=== PATIENT | male | born 1985 | race Caucasian/White ===

== ENCOUNTER 2017-01-01 16:14 | Emergency (ER) | payer OTHER ==
[2017-01-01 16:19] VITALS: BP 139/74; PULSE 101; TEMP 98.8; BMI 34.3
--- NOTE | 2017-01-01 16:53 | PDOC ---
History of Present Illness - General Chief Complaint: Pain Stated Complaint: ABD PAIN Time Seen by Provider: 01/01/17 16:44 - History of Present Illness Initial Comments: 01/01/17 16:45 Mr. Obrien is a 31 year old male with no significant past medical history who presents to the emergency department with a 3 day history of abdominal pain. He says that the pain has been more or less constant since it began and rates it as a 5/10. He denies any fever but says that he has had some chills. Furthermore, he endorses some decrease in urination currently. The patient denies chest pain, shortness of breath, headache and dizziness. Denies fever, nausea, vomit, diarrhea and constipation. Denies dysuria, frequency, urgency and hematuria. Allergies: NKDA Past surgical history: None Social history: Social EtOH PMD - None Past History - Past Medical History Allergies/Adverse Reactions: Allergies Allergy/AdvReac Type Severity Reaction Status Date / Time No Known Allergies Allergy Verified 01/01/17 16:16 Home Medications: Ambulatory Orders Ciprofloxacin HCl [Cipro] 500 mg PO BID #20 tablet 01/01/17 Metronidazole [Flagyl -] 500 mg PO TID #30 tablet 01/01/17 - Immunization History Immunization Up to Date: Yes - Psycho/Social/Smoking Cessation Hx Anxiety: No Suicidal Ideation: No Smoking History: Never smoked Have you smoked in the past 12 months: No Information on smoking cessation initiated: No Hx Alcohol Use: No Drug/Substance Use Hx: No Substance Use Type: None Review of Systems - Review of Systems Comments:: 01/01/17 16:45 GENERAL/CONSTITUTIONAL: +Chills. No fever. No weakness. HEAD, EYES, EARS, NOSE AND THROAT: No change in vision. No ear pain or discharge. No sore throat. CARDIOVASCULAR: No chest pain or shortness of breath RESPIRATORY: No cough, wheezing, or hemoptysis. GASTROINTESTINAL: +Lower abdominal pain reported. No nausea, vomiting, diarrhea or constipation. GENITOURINARY: +Recent decrease in urine amount noted. No dysuria or frequency MUSCULOSKELETAL: No joint or muscle swelling or pain. No neck or back pain. SKIN: No rash NEUROLOGIC: No headache, vertigo, loss of consciousness, or change in strength/ sensation. ENDOCRINE: No increased thirst. No abnormal weight change HEMATOLOGIC/LYMPHATIC: No anemia, easy bleeding, or history of blood clots. ALLERGIC/IMMUNOLOGIC: No hives or skin allergy. *Physical Exam - Vital Signs Last Vital Signs Temp Pulse Resp BP Pulse Ox 98.8 F 101 H 18 139/74 97 01/01/17 16:16 01/01/17 16:16 01/01/17 16:16 01/01/17 16:16 01/01/17 16:16 - Physical Exam Comments: 01/01/17 16:45 GENERAL: Awake, alert, and fully oriented, in no acute distress HEAD: No signs of trauma, normocephalic, atraumatic EYES: PERRLA, EOMI, sclera anicteric, conjunctiva clear ENT: Auricles normal inspection, hearing grossly normal, nares patent, oropharynx clear without exudates. Moist mucosa NECK: Normal ROM, supple, no lymphadenopathy, JVD, or masses LUNGS: No distress, speaks full sentences, clear to auscultation bilaterally HEART: Regular rate and rhythm, normal S1 and S2, no murmurs, rubs or gallops, peripheral pulses normal and equal bilaterally. ABDOMEN: +Tender to LLQ. Soft, normoactive bowel sounds. No guarding, no rebound. No masses EXTREMITIES: Normal inspection, Normal range of motion, no edema. No clubbing or cyanosis. NEUROLOGICAL: Cranial nerves II through XII grossly intact. Normal speech, normal gait, no focal sensorimotor deficits SKIN: Warm, Dry, normal turgor, no rashes or lesions noted. ED Treatment Course - LABORATORY CBC & Chemistry Diagram: 01/01/17 17:25 01/01/17 17:25 Medical Decision Making - Medical Decision Making 01/01/17 22:08 Patient c/o LLQ pain. CT ordered and positive for sigmoid colitis and possible acute diverticulitis. Will d/c to home with instructions for follow-up as well as ABX Rx's for ciprofloxacin and flagyl. *DC/Admit/Observation/Transfer Diagnosis at time of Disposition: Diverticulitis Qualifiers: Diverticulitis site: unspecified part of intestinal tract Diverticulitis bleeding: without bleeding Diverticulitis complication: unspecified complication status Qualified Code(s): K57.92 - Diverticulitis of intestine, part unspecified, without perforation or abscess without bleeding - Discharge Dispostion Disposition: HOME - Patient Instructions Printed Discharge Instructions: DI for Diverticulitis
[2017-01-01 17:42] LABS: BASOPHIL 0.5 % (0-2.0); EOSINOPHIL 0.6 % (0-4.5); MCH 29.3 pg (25.7-33.7); MCHC 33.6 g/dl (32.0-35.9); MEAN CELL VOLUME 87.2 fl (80-96); MEAN PLT VOLUME 10.3 fl (7.5-11.1); NEUTROPHILS 78.3 % (42.8-82.8); PLATELET COUNT 215 K/MM3 (134-434); RDW 13.6 % (11.9-15.9); WHITE BLOOD COUNT 15.3 K/mm3 (4.0-10.0)
[2017-01-01 18:29] LABS: URINE APPEARANCE CLEAR; URINE BILIRUBIN NEGATIVE (NEGATIVE); URINE BLOOD 1+ (NEGATIVE); URINE COLOR YELLOW; URINE GLUCOSE (UA) NEGATIVE (NEGATIVE); URINE KETONE NEGATIVE (NEGATIVE); URINE LEUK ESTERASE NEGATIVE (NEGATIVE); URINE NITRITE NEGATIVE (NEGATIVE); URINE PROTEIN NEGATIVE (NEGATIVE)
[2017-01-01 18:33] LABS: URINE MUCUS RARE; URINE RBC 1 /hpf (0-3)
[2017-01-01 18:41] LABS: ALBUMIN 4.4 g/dl (3.4-5.0); ANION GAP 10 (8-16); BILIRUBIN,TOTAL 0.7 mg/dL (0.2-1.0); CALCIUM 9.5 mg/dL (8.5-10.1); CO2 27 mmol/L (21-32); CREATININE 0.8 mg/dL (0.7-1.3); GLUCOSE,RANDOM 100 mg/dL (74-106); SGPT/ALT 68 U/L (12-78); TOT PROT 8.9 g/dl (6.4-8.2)
[2017-01-01 18:42] LABS: ALK PHOS 110 U/L (45-117)
[2017-01-01 18:44] LABS: SGOT/AST 20 U/L (15-37)
[2017-01-01] MEDS ORDERED: metroNIDAZOLE 250 MG TABLET PO ONE (22:06)
[2017-01-01] MEDS ORDERED: CIPROFLOXACIN 500 MG TABLET (RESTRICTED TO ID) PO ONE (22:06)
[2017-01-01] MEDS ORDERED: metroNIDAZOLE 250 MG TABLET ONE (22:57)
== END 2017-01-01 23:10 | disposition home or self-care (01) ==
LOC: JER 16:14
DX: K57.92 Diverticulitis of intestine, part unspecified, without perforation or abscess without bleeding (principal)
CPT/HCPCS: 36415; 74177-TC; 80053; 81003; 81015; 83690; 85025; 99282-25

== ENCOUNTER 2019-12-18 20:26 | Inpatient (IN) | payer BC, OTHER ==
--- NOTE | 2019-12-18 20:30 | PDOC ---
Rapid Medical Evaluation Time Seen by Provider: 12/18/19 20:29 Medical Evaluation: Allergies Allergy/AdvReac Type Severity Reaction Status Date / Time No Known Allergies Allergy Verified 01/01/17 16:16 12/18/19 20:30 I have performed a brief in-person evaluation of this patient. CC: right testicle pain since 12/16 PE: deferred Orders: scrotum sono Patient to proceed to ED for further evaluation. Discharge Disposition - Diagnosis Testicle pain - Referrals - Patient Instructions - Post Discharge Activity
[2019-12-18 20:35] VITALS: BMI 34.8
--- NOTE | 2019-12-18 20:55 | PDOC ---
History of Present Illness - General Chief Complaint: Pain Stated Complaint: ABD PAIN Time Seen by Provider: 12/18/19 20:29 History Source: Patient - History of Present Illness Initial Comments: 12/18/19 21:36 34-year-old male complaining of right lower abdominal pain for the last 2days. Patient reports that since yesterday he has been having right testicular discomfort today noted to have swelling, hardening of the right testicle with increased pain and redness.Patient reports that when the pain started on 2 days ago he took leftover dose of Cipro and Flagyl thinking that it was related to his colitis. PMHX: Elevated transaminase. Past History - Medical History Allergies/Adverse Reactions: Allergies Allergy/AdvReac Type Severity Reaction Status Date / Time No Known Allergies Allergy Verified 01/01/17 16:16 Home Medications: Ambulatory Orders Ciprofloxacin HCl [Cipro] 500 mg PO BID #20 tablet 01/01/17 metroNIDAZOLE [Flagyl -] 500 mg PO TID #30 tablet 01/01/17 COPD: No - Immunization History Immunization Up to Date: Yes - Psycho-Social/Smoking History Smoking History: Never smoked Have you smoked in the past 12 months: No - Substance Abuse Hx (Audit-C & DAST Scrn) How often the patient has a drink containing alcohol: Monthly or less Score: In Men: 4 or > Positive; In Women: 3 or > Positive: 1 Screen Result (Pos requires Nsg. Audit-10AR): Negative Review of Systems - Review of Systems Able to Perform ROS?: Yes Is the patient limited Citizen [place] proficient: No Constitutional: No: Symptoms Reported, See HPI, Chills, Diaphoresis, Fever, Loss of Appetite, Malaise, Night Sweats, Weakness, Weight Stable, Unintentional Wgt. Loss, Unexplained wgt Loss, Other : Yes: Testicular Pain. No: Symptoms Reported, See HPI, Burning, Dysuria, Discharge, Frequency, Flank Pain, Hematuria, Incontinence, Pain, Urgency, Testicular Mass, Testicular Swelling, Lesions, Other *Physical Exam - Vital Signs Last Vital Signs Temp Pulse Resp BP Pulse Ox 98.1 F 97 H 20 163/106 H 97 12/18/19 20:32 12/18/19 20:32 12/18/19 20:32 12/18/19 20:32 12/18/19 20:32 - Physical Exam General Appearance: Yes: Appropriately Dressed Gastrointestinal/Abdominal: positive: Normal Bowel Sounds, Tender (Right ) Male Genitalia: positive: testicular tenderness (right testicle swollen, hard, erythematous, right > left) Extremity: positive: Normal Capillary Refill, Normal Inspection, Normal Range of Motion ED Treatment Course - LABORATORY CBC & Chemistry Diagram: 12/18/19 21:38 12/18/19 21:38 ED Progress Note - Progress Note Progress Note: 12/18/19 21:44 A: right testiculr torsion P: pre op labs paged Medical Decision Making - Medical Decision Making 12/18/19 22:05 Dr. denise(urology) recommendation. Admission tonight. OR in the a.m. since symptoms greater than 6 hours. Patient to be admitted to the hospital for orchiotomy Discharge - Discharge Information Problems reviewed: Yes Clinical Impression/Diagnosis: Right testicular torsion Testicle pain Qualifiers: Laterality: right Qualified Code(s): N50.811 - Right testicular pain Condition: Guarded - Admission Yes - Follow up/Referral - Patient Discharge Instructions - Post Discharge Activity
[2019-12-18] MEDS ORDERED: SODIUM CHLORIDE 1,000 ML IV STA (21:28)
[2019-12-18] MEDS ORDERED: morphine CARPU-JECT 4 MG/1 ML DISP.SYRIN IVPUSH ONE (21:28)
[2019-12-18] MEDS ORDERED: morphine SULFATE 4 MG/ML VIAL ONE (21:33)
--- NOTE | 2019-12-18 21:49 | PDOC ---
*Physical Exam - Vital Signs Last Vital Signs Temp Pulse Resp BP Pulse Ox 98.1 F 97 H 20 163/106 H 97 12/18/19 20:32 12/18/19 20:32 12/18/19 20:32 12/18/19 20:32 12/18/19 20:32 - Physical Exam 12/18/19 21:45 Gen: awake, uncomfortable gu: R testicle is hard, red, high riding, no cremasteric reflex ED Treatment Course - LABORATORY CBC & Chemistry Diagram: 12/18/19 21:38 12/18/19 21:38 Medical Decision Making - Medical Decision Making 12/18/19 21:48 a/p: 34yo male with R testicle pain and redness -ultrasound shows torsion -will send labs -STAT call to urology - Dr. Hall -will start an iv, give pain meds -will monitor and reassess -NPO 12/18/19 21:59 pt with pain since yesterday more than 6 hrs of pain case discussed with Dr. Hall, urology, who [facility], OR at 7am microblog sent to [facility] for admission Discharge - Discharge Information Problems reviewed: Yes Clinical Impression/Diagnosis: Right testicular torsion Testicle pain Qualifiers: Laterality: right Qualified Code(s): N50.811 - Right testicular pain Condition: Guarded - Admission Yes - Follow up/Referral - Patient Discharge Instructions - Post Discharge Activity
[2019-12-18 21:55] LABS: BASO % 0.4 % (0-2.0); EOS % 0.8 % (0-4.5); HEMATOCRIT 42.2 % (35.4-49); HEMOGLOBIN 14.5 GM/dL (11.7-16.9); LYMPH % 17.3 % (8-40); MCH 29.7 pg (25.7-33.7); MCHC 34.4 g/dl (32.0-35.9); MEAN CELL VOLUME 86.4 fl (80-96); MEAN PLT VOLUME 9.8 fl (7.5-11.1); MONO % 5.3 % (3.8-10.2); NEUT % 76.2 % (42.8-82.8); PLATELET COUNT 192 K/MM3 (134-434); RBC 4.89 M/mm3 (4.00-5.60); RDW 13.4 % (11.9-15.9); WHITE BLOOD COUNT 12.4 K/mm3 (4.0-10.0)
[2019-12-18 22:04] LABS: INR 0.99 (0.83-1.09); PROTHROMBIN TIME (PATIENT) 11.7 SEC (9.7-13.0)
[2019-12-18 22:07] LABS: ACTIVATED PTT 30.2 SECONDS (25.2-36.5)
[2019-12-18 22:30] LABS: ALBUMIN 3.8 g/dl (3.4-5.0); BILIRUBIN,TOTAL 0.4 mg/dL (0.2-1); BLOOD UREA NITROGEN 12.5 mg/dL (7-18); CREATININE 0.9 mg/dL (0.55-1.3); POTASSIUM 4.6 mmol/L (3.5-5.1); TOT PROT 7.8 g/dl (6.4-8.2)
[2019-12-18] MEDS ORDERED: DEXTROSE 5%-0.45% SALINE 1,000 ML IV SCH (22:30)
--- NOTE | 2019-12-18 22:37 | HP ---
CHIEF COMPLAINT: Right Testicular Pain PCP: None HISTORY OF PRESENT ILLNESS: This is a 34 y/o male with a PMHx of Colitis, Transaminitis, Prediabetes. Who presents to the ED with right testicular pain and swelling x today. Patient reports having right lower abdominal pain with radiation to right groin last Mo . Patient reports taking leftover Cipro/Flagyl on Tuesday for the abdominal pain which he assumed was a colitis flare. He reports the pain became worse when attempting to have a BM. He reports having swelling, redness, and hardness to his right testicle today. Patient reports that the pain increased, worse with movement prompting him to come in for evaluation. Patient reports being in a monogamous relationship, last sexual intercourse was last Tuesday without barrier protection. Patient denies penile discharge or dysuria. Patient denies fever, chills, cough, SOB, dizziness, WILSON, CP, palpations, N/V/D. Patient denies sick contact or recent travel. ER course was notable for: (1) Testicular US- right testicular torsion (2) WBC 12.4 (3) UA- +1 leukocytosis, 3 WBC, 10 bacteria Recent Travel: None PAST MEDICAL HISTORY: Colitis Transaminitis PreDiabetes Cryptorchidism PAST SURGICAL HISTORY: Orchiopexy age 4 Social History: Smoking: Never Alcohol: Denies Drugs: Denies Lives with family, employed- [employer] Allergies No Known Allergies Allergy (Verified 01/01/17 16:16) HOME MEDICATIONS: Home Medications Medication Instructions Recorded Ciprofloxacin HCl [Cipro] 500 mg PO BID #20 tablet 01/01/17 metroNIDAZOLE [Flagyl -] 500 mg PO TID #30 tablet 01/01/17 REVIEW OF SYSTEMS CONSTITUTIONAL: Absent: fever, chills, diaphoresis, generalized weakness, malaise, loss of appetite, weight change HEENT: Absent: rhinorrhea, nasal congestion, throat pain, throat swelling, difficulty swallowing, mouth swelling, ear pain, eye pain, visual changes CARDIOVASCULAR: Absent: chest pain, syncope, palpitations, irregular heart rate, lightheadedness, peripheral edema RESPIRATORY: Absent: cough, shortness of breath, dyspnea with exertion, orthopnea, wheezing, stridor, hemoptysis GASTROINTESTINAL: abdominal pain Absent: abdominal pain, abdominal distension, nausea, vomiting, diarrhea, constipation, melena, hematochezia GENITOURINARY: right testicular pain Absent: dysuria, frequency, urgency, hesitancy, hematuria, flank pain MUSCULOSKELETAL: Absent: myalgia, arthralgia, joint swelling, back pain, neck pain SKIN: Absent: rash, itching, pallor HEMATOLOGIC/IMMUNOLOGIC: Absent: easy bleeding, easy bruising, lymphadenopathy, frequent infections ENDOCRINE: Absent: unexplained weight gain, unexplained weight loss, heat intolerance, cold intolerance NEUROLOGIC: Absent: headache, focal weakness or paresthesias, dizziness, unsteady gait, seizure, mental status changes, bladder or bowel incontinence PSYCHIATRIC: Absent: anxiety, depression, suicidal or homicidal ideation, hallucinations. PHYSICAL EXAMINATION Vital Signs - 24 hr 12/18/19 20:32 Temperature 98.1 F Pulse Rate 97 H Respiratory 20 Rate Blood Pressure 163/106 H O2 Sat by Pulse 97 Oximetry (%) GENERAL: Awake, alert, and fully oriented, in no acute distress (post medication) HEAD: Normal with no signs of trauma. EYES: Pupils equal, round and reactive to light, extraocular movements intact, sclera anicteric, conjunctiva clear. No lid lag. EARS, NOSE, THROAT: Ears normal, nares patent, oropharynx clear without exudates. Moist mucous membranes. NECK: Normal range of motion, supple without lymphadenopathy, JVD, or masses. LUNGS: Breath sounds equal, clear to auscultation bilaterally. No wheezes, and no crackles. No accessory muscle use. HEART: Regular rate and rhythm, normal S1 and S2 without murmur, rub or gallop. ABDOMEN: Soft, nontender, not distended, normoactive bowel sounds, no guarding, no rebound, no masses. No hepatomegaly or splenomegaly. GENITOURINARY: +swelling, erythema, hardness, TTP to right testicle, left testicle non tender, no swelling, no redness MUSCULOSKELETAL: Normal range of motion at all joints. No bony deformities or tenderness. No CVA tenderness. UPPER EXTREMITIES: 2+ pulses, warm, well-perfused. No cyanosis. No clubbing. No peripheral edema. LOWER EXTREMITIES: 2+ pulses, warm, well-perfused. No calf tenderness. No peripheral edema. NEUROLOGICAL: Cranial nerves II-XII intact. Normal speech. Gait not observed. PSYCHIATRIC: Cooperative. Good eye contact. Appropriate mood and affect. SKIN: Warm, dry, normal turgor, no rashes or lesions noted, normal capillary refill. Tattoos Laboratory Results - last 24 hr 12/18/19 12/18/19 12/18/19 21:38 21:38 21:38 WBC 12.4 H RBC 4.89 Hgb 14.5 Hct 42.2 MCV 86.4 MCH 29.7 MCHC 34.4 RDW 13.4 Plt Count 192 MPV 9.8 Absolute Neuts (auto) 9.4 H Neutrophils % 76.2 Lymphocytes % 17.3 D Monocytes % 5.3 Eosinophils % 0.8 Basophils % 0.4 Nucleated RBC % 0 PT with INR 11.70 INR 0.99 PTT (Actin FS) 30.2 Sodium 139 Potassium 4.6 Chloride 105 Carbon Dioxide 27 Anion Gap 6 L BUN 12.5 Creatinine 0.9 Est GFR (CKD-EPI)AfAm 128.70 Est GFR (CKD-EPI)NonAf 111.04 Random Glucose 113 H Calcium 9.0 Total Bilirubin 0.4 AST 131 H ALT 193 H Alkaline Phosphatase 103 Total Protein 7.8 Albumin 3.8 ASSESSMENT/PLAN: This is a 34 y/o male with a PMHx of Colitis, Transaminitis, Prediabetes. Admitted to [facility] for Testicular Torsion, UTI for further evaluation of their emergent condition. Plan: See Problem List FEN D50.45%NS@100ml/hr Replete lytes prn NPO DVT ppx Low Risk OOB SCDs Dispo: Requires Inpatient Family Medical History Family History: As Documented Family Hx Diabetes: Grandfather (maternal) Other Family History: Maternal Aunt- Diabetes Problem List - Problem (1) Right testicular torsion Assessment/Plan: pain > 6hrs Testicular US image, report reviewed- right testicular torsion Urologist consulted by ED MD- OR tomorrow for Orchiectomy WBC 12.4 UA- +1 leukocyte esterase, 3WBC T Max 100.0 NPO IVF Morphine Sulfate prn Ofirmev prn Monitor CBC, CMP Monitor vitals Code(s): N44.00 - TORSION OF TESTIS, UNSPECIFIED (2) UTI (urinary tract infection) Assessment/Plan: Urine Culture-pending Will treat empirically with Ceftriaxone Monitor CBC Monitor vitals Code(s): N39.0 - URINARY TRACT INFECTION, SITE NOT SPECIFIED (3) Leukocytosis Assessment/Plan: Likely due to Testicular Torsion vs UTI Blood Cultures-pending Treating empirically for UTI Monitor CBC Code(s): D72.829 - ELEVATED WHITE BLOOD CELL COUNT, UNSPECIFIED (4) Transaminitis Assessment/Plan: 3-4xNL AST/ALT only Continue to monitor f/u with PCP in outpatient Code(s): R74.0 - NONSPEC ELEV OF LEVELS OF TRANSAMNS & LACTIC ACID DEHYDRGNSE (5) Encounter for screening laboratory testing for COVID-19 virus Assessment/Plan: Low Risk COVID-PCR pending Isolation Precautions Code(s): Z11.59 - ENCOUNTER FOR SCREENING FOR OTHER VIRAL DISEASES Visit type - Emergency Visit Emergency Visit: Yes ED Registration Date: 12/18/19 Care time: The patient presented to the Emergency Department on the above date and was hospitalized for further evaluation of their emergent condition. - New Patient This patient is new to me today: Yes Date on this admission: 12/18/19 - Critical Care Critical Care patient: No
[2019-12-18] MEDS ORDERED: ONDANSETRON 4 MG/2 ML VIAL IVPUSH PRN (22:40)
[2019-12-18] MEDS ORDERED: ACETAMINOPHEN 1000 MG/100 ML VIAL (NON FORMULARY) IVPB PRN ×2 (23:55→23:56)
--- NOTE | 2019-12-18 23:55 | CONS ---
DATE OF CONSULTATION: DATE OF DICTATION: 12/18/2019 HISTORY OF PRESENT ILLNESS: The patient is a 34-year-old male who came to the emergency room on December 18, 2019, was seen about 9:30 p.m. complaining of pain in his lower abdomen and scrotum. Patient states that he has had right lower abdominal pain and right scrotal pain for the last 2 days. Patient reports that since yesterday, he has been having severe right testicular pain. Today he noticed that the scrotum is and the skin is indurated and inflamed. Patient claims that 48 hours earlier he took leftover Cipro and Flagyl thinking that it was related to his colitis. He does have history of elevated transaminases. He denies any medical problems. He denies ethanolism or tobacco use. He denies any trauma to the testicles. Patient denies any voiding symptoms. In the emergency room, temperature is 98.1, respirations 20, pulse is 97, blood pressure 163/106, pulse oximetry is 97. His CBC and basic metabolic profile are pending. The patient underwent a testicular ultrasound as well as a color flow Doppler, this revealed no arterial or venous drainage to the right testicle. IMPRESSION: At present is testicular torsion greater than 24 hours. Will recommend right scrotal exploration and orchiectomy at 7 a.m. Will wait for blood workup. Will explain to patient the procedure and the consequences of the delay in diagnosis due to his not seeking earlier emergency room care and treatment. Will follow. Memo [id number]
[2019-12-18] MEDS ORDERED: ACETAMINOPHEN 1000 MG/100 ML VIAL (NON FORMULARY) IVPB ONE (23:56)
[2019-12-19] MEDS ORDERED: ACETAMINOPHEN INJECTION 100 ML IVPB ONE
[2019-12-19 00:36] LABS: EPI CELLS 3 /uL (0-25.1); HYALINE CASTS 1 /uL (0-3.1); URINE APPEARANCE CLEAR; URINE BACTERIA 10 /uL (0-1359); URINE BILIRUBIN NEGATIVE (NEGATIVE); URINE COLOR YELLOW; URINE GLUCOSE (UA) NEGATIVE (NEGATIVE); URINE KETONE NEGATIVE (NEGATIVE); URINE LEUK ESTERASE 1+ (NEGATIVE); URINE NITRITE NEGATIVE (NEGATIVE); URINE PROTEIN NEGATIVE (NEGATIVE); URINE RBC 6 /uL (0-23.9); URINE UROBILINOGEN 0.2 mg/dL (0.2-1.0); URINE WBC 3 /uL (0-25.8)
[2019-12-19] MEDS ORDERED: morphine SULFATE 4 MG/ML VIAL IVPUSH PRN (01:00)
[2019-12-19] MEDS ORDERED: CEFTRIAXONE 1 GM in DEXTROSE 5%-WATER - 50 ML IVPB ONE (01:52)
[2019-12-19] MEDS ORDERED: SUCCINYLCHOLINE CHLORIDE 200 MG/10 ML SYRINGE ONE (07:35)
[2019-12-19] MEDS ORDERED: MIDAZOLAM HCL 2 MG/2 ML SINGLE DOSE VIAL ONE ×2 (07:35→08:13)
[2019-12-19] MEDS ORDERED: PROPOFOL 20 ML ONE (07:35)
[2019-12-19] MEDS ORDERED: LIDOCAINE HCL 1%, 10 MG/ML (20ML VIAL) ONE (07:48)
[2019-12-19] MEDS ORDERED: BUPIVACAINE HCL/PF 0.25% (2.5MG/ML) 10 ML VIAL ONE (07:51)
[2019-12-19 07:53] LABS: BASO % 0.5 % (0-2.0); EOS % 1.2 % (0-4.5); HEMATOCRIT 41.7 % (35.4-49); HEMOGLOBIN 14.4 GM/dL (11.7-16.9); LYMPH % 23.1 % (8-40); MCH 30.3 pg (25.7-33.7); MCHC 34.5 g/dl (32.0-35.9); MEAN CELL VOLUME 87.8 fl (80-96); MEAN PLT VOLUME 10.1 fl (7.5-11.1); MONO % 7.4 % (3.8-10.2); NEUT % 67.8 % (42.8-82.8); PLATELET COUNT 184 K/MM3 (134-434); RBC 4.75 M/mm3 (4.00-5.60); RDW 13.4 % (11.9-15.9); WHITE BLOOD COUNT 10.7 K/mm3 (4.0-10.0)
[2019-12-19] MEDS ORDERED: KETOROLAC TROMETHAMINE 30 MG/1 ML VIAL ONE (08:18)
[2019-12-19] MEDS ORDERED: ceFAZolin SODIUM 1 GM VIAL ONE (08:18)
[2019-12-19] MEDS ORDERED: ceFAZolin SODIUM 1 GM VIAL IVPB ONE (08:18)
[2019-12-19] MEDS ORDERED: DEXAMETHASONE SOD PHOSPHATE 4 MG/1 ML VIAL ONE (08:18)
[2019-12-19 08:31] LABS: ALBUMIN 3.5 g/dl (3.4-5.0); BILIRUBIN,TOTAL 0.8 mg/dL (0.2-1); BLOOD UREA NITROGEN 11.2 mg/dL (7-18); CALCIUM 8.4 mg/dL (8.5-10.1); CREATININE 0.7 mg/dL (0.55-1.3); POTASSIUM 3.7 mmol/L (3.5-5.1); TOT PROT 7.1 g/dl (6.4-8.2)
[2019-12-19] MEDS ORDERED: BUPIVACAINE HCL/PF 2.5 MG/ML - 30 ML VIAL IJ ONE ×2 (08:31)
[2019-12-19] MEDS ORDERED: ONDANSETRON 4 MG/2 ML VIAL IVPUSH PRN (09:10)
--- NOTE | 2019-12-19 09:11 | OP ---
Operative Note - Note: Operative Date: 12/19/19 Pre-Operative Diagnosis: rt. testicular tortion Operation: rt. orchiectomy ,rt. hydrocelectomy and lt. orchiopexy Findings: gangrene of rt. testis and epidydimis, rt. hydrocele Post-Operative Diagnosis: Same as Pre-op Surgeon: Santos Hall Anesthesia: Spinal Specimens Removed: rt. testicle and epidydimis and hydrocele sac Estimated Blood Loss (mls): 0 Instrument used (Debridements only): 0 Drains & Tubes with Location: 1/4 inch nohelia in rt. hemiscrotum Drains, Volume Out (mls): 0 Blood Volume Replaced (mls): 0 Fluid Volume Replaced (mls): 0 Operative Report Dictated: Yes
[2019-12-19] MEDS ORDERED: LACTATED RINGERS SOLUTION 1,000 ML IV SCH (09:15)
[2019-12-19] MEDS ORDERED: ACETAMINOPHEN 325 MG TABLET (FP) PO PRN (09:16)
--- NOTE | 2019-12-19 09:22 | EKG ---
Test Reason : Blood Pressure : / mmHG Vent. Rate : 084 BPM Atrial Rate : 084 BPM P-R Int : 138 ms QRS Dur : 080 ms QT Int : 380 ms P-R-T Axes : 044 062 035 degrees QTc Int : 449 ms NORMAL SINUS RHYTHM NORMAL ECG NO PREVIOUS ECGS AVAILABLE Confirmed by Peter Jiménez MD ([id number]) on 12/19/2019 9:22:21 AM Referred By: Confirmed By:Peter Jiménez MD
--- NOTE | 2019-12-19 09:25 | PREOP ---
DATE OF ADMISSION: 12/18/2019 Patient is a 34-year-old male with possible torsion of the right testicle for the past 48 hours. Patient does have past medical history of colitis, transaminitis, prediabetes. He presented to the emergency room last night with right testicular pain of 1 to 2 days duration. The swelling followed the pain, and the erythema followed the swelling. Patient also reports having right lower quadrant pain with radiation to right hemiscrotum. Two days earlier, patient took leftover Cipro and Flagyl on Tuesday after he developed the testicular pain for the abdominal pain, which he assumed was secondary to a colitis flareup. He reports the pain became worse when he attempted to have a bowel movement. He reports that he has had swelling, redness, and hardness of his right testicle for the past 36 hours. Patient also claims the pain increased; it is worse with movement, prompting him to come into the emergency room. He is in a monogamous relationship. Last sexual intercourse was last week without barrier protection. Patient denies any voiding symptoms, penile discharge, or dysuria. He denies fever, chills, chest pain, shortness of breath, palpitations, nausea, vomiting, or diarrhea. He denies any sick contacts or recent travel. In the emergency room last night, the testicular scan revealed no vascular flow, both venous and arterial, to the right testicle. His white count was 12,400. Urinalysis revealed 1+ leukocytes and 10 bacteria. 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 He denies alcohol, drugs, or ethanol use. He lives with his family. 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 He denies any allergies. He does take Cipro and Flagyl for his recurrent colitis. REVIEW OF SYSTEMS: Was basically genitourinary with right testicular pain and right hemiscrotal erythema and swelling. The patient's temperature last night is 98.1, pulse 97, respirations 20, blood pressure 163/106, O2 saturation 97. LABORATORY DATA: His white count is 12.4, hemoglobin 14.5/hematocrit 42.2. His was BUN 12.5/creatinine 0.9. Random glucose was 113. His AST and ALT were both elevated at AST 131/ALT 193. His alkaline phosphatase, albumin, and protein were within normal limits. IMPRESSION: At present is a 34-year-old male with a 2-day history of testicular torsion, has history of colitis, transaminitis, diagnosed with prediabetes. PLAN: Is to take to the OR as soon as possible. The possibility of an orchiectomy was explained in detail to the patient. All possible side effects were also explained, and he agrees. Memo [id number]
--- NOTE | 2019-12-19 11:03 | OP ---
DATE OF OPERATION: DATE OF DICTATION: 12/19/2019 PREOPERATIVE DIAGNOSIS: Right testicular torsion, acute scrotum of 2 days duration. POSTOPERATIVE DIAGNOSIS: Torsion 720 degrees of spermatic cord with necrosis of testicle and epididymis. OPERATIVE PROCEDURE: Right scrotal exploration, right orchiectomy, right hydrocelectomy and left orchiopexy. ANESTHESIA: Spinal. DESCRIPTION OF PROCEDURE: Under above-stated anesthesia patient was prepped and draped in the usual sterile manner. He was placed in the supine position. A right hemiscrotal incision was made. This was carried down through skin and subcutaneous tissue. Tunica vaginalis was opened. The large amount of blood-tinged fluid was drained. The testicle appeared to be black. An incision in the tunica albuginea revealed no bleeding. Inspection of the spermatic cord above the testicle revealed a double 360-degree torsion. The testicle was untorsed. Ten minutes elapsed and there was no change in color. Therefore, the cord was divided into 3 segments, clamped with a Alie. The testicle and epididymis were removed. The cord was suture ligated with 2-0 Vicryl suture ligature and tied with 0 silk suture ligature. No active bleeding was noted. A wall of the tunica vaginalis was also excised and sent to Pathology. The wound was irrigated. A 1/2-inch Marco was left in the right hemiscrotum and brought out a separate stab wound incision. The left testicle was then explored. The tunica albuginea was then sutured to the cremasteric and dartos muscle fibers at 2 points to prevent torsion. The skin was closed with 3-0 mattress suture ligatures. The skin on the right side was closed with a first layer of 3-0 Vicryl suture ligature and a skin layer of 3-0 chromic mattresses. The right Marco drain was anchored with 3-0 Vicryl suture ligatures. Pressure dressing was applied to the area. No active bleeding was noted. The spermatic cords on the right and left sides were infiltrated with 0.25% Marcaine 10 mL for long-term analgesia. The patient tolerated the procedure well. He returned to the recovery room in good condition. Memo [id number]
--- NOTE | 2019-12-19 11:37 | PN ---
DATE OF VISIT: DATE OF DICTATION: 12/19/2019 Patient is a 34-year-old male who underwent a right orchiectomy and a left orchiopexy. He has a 1/4-inch Marco in the right hemiscrotum. He is urologically cleared for discharge. We would like to see him in the office on Tuesday morning at 10 a.m. at [facility], [address] [place] [address]. Memo [id number]
[2019-12-19] MEDS: oxyCODONE HCL 5 MG TABLET PO PRN ×2 (14:39→22:01)
[2019-12-19] MEDS: ACETAMINOPHEN 325 MG TABLET (FP) PO PRN ×2 (14:40→22:02)
--- NOTE | 2019-12-19 18:10 | PN ---
Physical Exam: SUBJECTIVE: Patient seen and examined this morning prior to his surgery, was feeling nervous and endorsed a mild frontal headache due to poor sleep. He said he is feeling nervous and is waiting for the surgeon to come. Patient was reevaluated after procedure, jerry was at bedside. Patient was feeling sad about what he went through and jerry was concerned about his pain management after the anesthesia wears off, as she remembers how horrible his pain was when she brought him to the hospital. OBJECTIVE: Vital Signs Period Temp Pulse Resp BP Sys/Perkins Pulse Ox Last 24 Hr 97.7 F-100.0 F 60-97 10-20 100-163/50-106 96-100 GENERAL: male, appears stated age, slightly overweight, fully oriented, in mild distress HEAD: Normal with no signs of trauma EYES: PERRL, direct and consensual pupillary reflexes intact, extraocular movements intact,conjunctiva clear ENT: moist mucous membranes LUNGS: CTAB, no wheezing appreciated HEART: RRR, S1, S2 without murmurs ABDOMEN: Soft, nontender to deep palpation, nondistended, active bowel sounds TESTICLE: R testicle significantly larger than L (~3x the size), solid on palpation and tender to touch, mildly erythematous EXTREMITIES: radial and dorsalis pedis pulses easily palpated, warm to touch, no peripheral edema appreciated NEUROLOGICAL: Cranial nerves II through XII grossly intact, normal speech PSYCH: mildly anxious mood, affect congruent with stated mood SKIN: Warm to touch, multiple tatoos on arms and chest, no rashes or lesions noted Laboratory Results - last 24 hr 12/18/19 12/18/19 12/18/19 21:38 21:38 21:38 WBC 12.4 H RBC 4.89 Hgb 14.5 Hct 42.2 MCV 86.4 MCH 29.7 MCHC 34.4 RDW 13.4 Plt Count 192 MPV 9.8 Absolute Neuts (auto) 9.4 H Neutrophils % 76.2 Lymphocytes % 17.3 D Monocytes % 5.3 Eosinophils % 0.8 Basophils % 0.4 Nucleated RBC % 0 PT with INR 11.70 INR 0.99 PTT (Actin FS) 30.2 Sodium 139 Potassium 4.6 Chloride 105 Carbon Dioxide 27 Anion Gap 6 L BUN 12.5 Creatinine 0.9 Est GFR (CKD-EPI)AfAm 128.70 Est GFR (CKD-EPI)NonAf 111.04 Random Glucose 113 H Lactic Acid Calcium 9.0 Total Bilirubin 0.4 AST 131 H ALT 193 H Alkaline Phosphatase 103 Total Protein 7.8 Albumin 3.8 Urine Color Urine Appearance Urine pH Ur Specific [place] Urine Protein Urine Glucose (UA) Urine Ketones Urine Blood Urine Nitrite Urine Bilirubin Urine Urobilinogen Ur Leukocyte Esterase Urine WBC (Auto) Urine RBC (Auto) Urine Casts (Auto) U Epithel Cells (Auto) Urine Bacteria (Auto) Blood Type Antibody Screen 12/18/19 12/18/19 12/18/19 21:38 21:45 22:22 WBC RBC Hgb Hct MCV MCH MCHC RDW Plt Count MPV Absolute Neuts (auto) Neutrophils % Lymphocytes % Monocytes % Eosinophils % Basophils % Nucleated RBC % PT with INR INR PTT (Actin FS) Sodium Potassium Chloride Carbon Dioxide Anion Gap BUN Creatinine Est GFR (CKD-EPI)AfAm Est GFR (CKD-EPI)NonAf Random Glucose Lactic Acid 1.1 Calcium Total Bilirubin AST ALT Alkaline Phosphatase Total Protein Albumin Urine Color Yellow Urine Appearance Clear Urine pH 5.0 Ur Specific [place] 1.023 Urine Protein Negative Urine Glucose (UA) Negative Urine Ketones Negative Urine Blood Negative Urine Nitrite Negative Urine Bilirubin Negative Urine Urobilinogen 0.2 Ur Leukocyte Esterase 1+ H Urine WBC (Auto) 3 Urine RBC (Auto) 6 Urine Casts (Auto) 1 U Epithel Cells (Auto) 3 Urine Bacteria (Auto) 10 Blood Type O POSITIVE Antibody Screen Negative 12/19/19 12/19/19 07:15 07:15 WBC 10.7 H RBC 4.75 Hgb 14.4 Hct 41.7 MCV 87.8 MCH 30.3 MCHC 34.5 RDW 13.4 Plt Count 184 MPV 10.1 Absolute Neuts (auto) 7.3 Neutrophils % 67.8 Lymphocytes % 23.1 D Monocytes % 7.4 Eosinophils % 1.2 Basophils % 0.5 Nucleated RBC % 0 PT with INR INR PTT (Actin FS) Sodium 139 Potassium 3.7 Chloride 105 Carbon Dioxide 23 Anion Gap 12 BUN 11.2 Creatinine 0.7 Est GFR (CKD-EPI)AfAm 142.70 Est GFR (CKD-EPI)NonAf 123.13 Random Glucose 137 H Lactic Acid Calcium 8.4 L Total Bilirubin 0.8 AST 92 H ALT 167 H Alkaline Phosphatase 84 Total Protein 7.1 Albumin 3.5 Urine Color Urine Appearance Urine pH Ur Specific [place] Urine Protein Urine Glucose (UA) Urine Ketones Urine Blood Urine Nitrite Urine Bilirubin Urine Urobilinogen Ur Leukocyte Esterase Urine WBC (Auto) Urine RBC (Auto) Urine Casts (Auto) U Epithel Cells (Auto) Urine Bacteria (Auto) Blood Type Antibody Screen Active Medications Generic Name Dose Route Start Last Admin Trade Name Freq PRN Reason Stop Dose Admin Acetaminophen 650 mg 12/19/19 09:16 Tylenol - PO Q6H PRN PAIN LEVEL 1-5 Acetaminophen 325 mg 12/19/19 09:30 12/19/19 14:40 Tylenol - PO 12/22/19 09:29 325 mg Q4H PRN Administration PAIN LEVEL 7 - 10 Fentanyl 50 mcg 12/19/19 09:20 Sublimaze Injection - IVPUSH [id number] PRN PAIN-PACU ORDER X 4 DOSES ONLY Oxycodone HCl 5 mg 12/19/19 09:30 12/19/19 14:39 Roxicodone - PO 5 mg Q4H PRN Administration PAIN LEVEL 7 - 10 ASSESSMENT/PLAN: 34yo M with no significant PMHx who presented with R testicular pain and RLQ abdominal tenderness. Testicular US showed R testicular torsion and patient was taken to OR with urology on 12/19/19 for R orchiectomy. Patient is recovering well s/p procedure. Of note, patient had a recent doctor's visit that showed increased LFTs and an US that showed fatty liver. #Testicular torsion s/p R orchiectomy POD0 procedure was uneventful, per urology patient is fit for d/c after overnight observation - PRN PO tylenol for pain (can escalate with fentanyl or oxycodone if necessary) #Transaminitis - unclear etiology, alcoholic fatty liver disease vs viral vs less likely alcoholic hepatitis - ordered hepatitis panel with am labs #FEN - no standing fluids - replete lytes PRN - regular diet #PPX - DVT: heparin #Dispo: continue monitoring overnight and can d/c tomorrow if patient is stable Visit type - Emergency Visit Emergency Visit: Yes ED Registration Date: 12/18/19 Care time: The patient presented to the Emergency Department on the above date and was hospitalized for further evaluation of their emergent condition. - New Patient This patient is new to me today: Yes Date on this admission: 12/19/19 - Critical Care Critical Care patient: No ATTENDING PHYSICIAN STATEMENT I saw and evaluated the patient. I reviewed the resident's note and discussed the case with the resident. I agree with the resident's findings and plan as documented. SUBJECTIVE: OBJECTIVE: ASSESSMENT AND PLAN:
--- NOTE | 2019-12-19 18:14 | PN ---
Teaching Attending Note Name of Resident: Inocente Vick ATTENDING PHYSICIAN STATEMENT I saw and evaluated the patient. I reviewed the resident's note and discussed the case with the resident. I agree with the resident's findings and plan as documented. SUBJECTIVE: seen after procedrue . no painin testicular area or abd . no sob or cp . no pal pitations . denies STDs or UTIs. reprots US and work up fro transaminitis long time a go and was told he has fatty liver. has no PCP now. reprots ulcerations of forskin in past and wanted to have circumcision inpast but never got to see a urologist. denies fever at home or any dysuria , frequency or hematuria or discharge OBJECTIVE: NAd awake, alert, cooperative CV: RRR Lungs: CTAB Ext : No edema or erythema on upper or lower extremities abd: sfot, NT, Nd , NL BS : scrotal elevation on , gauze on scrotal area. dressing was not removed. nl un-circumcised penis . No discharge ASSESSMENT AND PLAN: 34 y/o man with h/o Colitis, Transaminitis due to fatty liver , Prediabetes who presented with R testicular pain and was found to have R testicular torsion 1- R testicular torsion s/p orchiectomy/hydrocecectomy POD 0 . doing well - start DVT Px - dressing change per uro - f/u with uro as out pt - no evidence of UTI on UA . no UTI Sx - low grade fever and leukocytosis could be due to the torsion. - STD test was done on admission . follow 2- transaminitis , likely due to fatty liver as patient stated. no evidence of obstruction . No abd tenderness - LFTs trended down - get hepatitis panel - f./u as out pt with PCP , will refer . - No need to do US 3- H/o Pre- Dm - check A1c due to overweight dispo : dc home tomorrow if no fever or other complications
[2019-12-19] MEDS: HEPARIN NA (PORCINE) 5,000 UNITS/ML 1ML VIAL SQ SCH (22:03)
[2019-12-20] MEDS: HEPARIN NA (PORCINE) 5,000 UNITS/ML 1ML VIAL SQ SCH (05:24)
[2019-12-20 08:11] LABS: BILIRUBIN,TOTAL 0.4 mg/dL (0.2-1); CREATININE 0.7 mg/dL (0.55-1.3); MAGNESIUM 2.3 mg/dL (1.8-2.4); PHOSPHOROUS 3.1 mg/dL (2.5-4.9); POTASSIUM 3.9 mmol/L (3.5-5.1); TOT PROT 6.5 g/dl (6.4-8.2)
[2019-12-20 08:13] LABS: BASO % 0.3 % (0-2.0); EOS % 0.1 % (0-4.5); HEMOGLOBIN 13.1 GM/dL (11.7-16.9); LYMPH % 19.5 % (8-40); MCH 30.4 pg (25.7-33.7); MCHC 34.4 g/dl (32.0-35.9); MEAN CELL VOLUME 88.2 fl (80-96); MEAN PLT VOLUME 10.4 fl (7.5-11.1); MONO % 7.7 % (3.8-10.2); NEUT % 72.4 % (42.8-82.8); PLATELET COUNT 172 K/MM3 (134-434); RBC 4.31 M/mm3 (4.00-5.60); RDW 13.3 % (11.9-15.9); WHITE BLOOD COUNT 12.2 K/mm3 (4.0-10.0)
--- NOTE | 2019-12-20 11:19 | DS ---
Physical Exam: SUBJECTIVE: Patient seen and examined, feeling well and ready to leave the hospital. Denied any SOB, CP, headaches, dizziness, pain. Only feels some tenderness in the surgical area. OBJECTIVE: Vital Signs Period Temp Pulse Resp BP Sys/Perkins Pulse Ox Last 24 Hr 97.9 F-99.4 F 62-94 10-20 106-149/48-81 94-100 PHYSICAL EXAM GENERAL: male, appears stated age, slightly overweight, fully oriented, in no acute distress HEAD: Normal with no signs of trauma EYES: PERRL, direct and consensual pupillary reflexes intact, extraocular movements intact,conjunctiva clear ENT: moist mucous membranes LUNGS: CTAB, no wheezing appreciated HEART: RRR, S1, S2 without murmurs ABDOMEN: Soft, nontender to deep palpation, nondistended, active bowel sounds TESTICLE: regular-appearing scrotum with small exiting drain on the R side, no erythema appreciated EXTREMITIES: radial and dorsalis pedis pulses easily palpated, warm to touch, no peripheral edema appreciated NEUROLOGICAL: Cranial nerves II through XII grossly intact, normal speech PSYCH: mildly anxious mood, affect congruent with stated mood SKIN: Warm to touch, multiple tatoos on arms and chest, no rashes or lesions noted LABS Laboratory Results - last 24 hr 12/18/19 12/20/19 12/20/19 22:22 07:14 07:14 WBC 12.2 H RBC 4.31 Hgb 13.1 Hct 38.0 MCV 88.2 MCH 30.4 MCHC 34.4 RDW 13.3 Plt Count 172 MPV 10.4 Absolute Neuts (auto) 8.8 H Neutrophils % 72.4 Lymphocytes % 19.5 Monocytes % 7.7 Eosinophils % 0.1 D Basophils % 0.3 Nucleated RBC % 0 Sodium 141 Potassium 3.9 Chloride 108 H Carbon Dioxide 26 Anion Gap 7 L BUN 10.0 Creatinine 0.7 Est GFR (CKD-EPI)AfAm 142.70 Est GFR (CKD-EPI)NonAf 123.13 Random Glucose 171 H Calcium 8.0 L Phosphorus 3.1 Magnesium 2.3 Total Bilirubin 0.4 AST 35 ALT 111 H Alkaline Phosphatase 82 Total Protein 6.5 Albumin 3.0 L COVID-19 (JUAN MANUEL) Not detected HOSPITAL COURSE: 34yo M with no significant PMHx who presented with R testicular pain and RLQ abdominal tenderness. Testicular US showed R testicular torsion and patient was taken to OR with urology on 12/19/19 for R orchiectomy. Patient recovered well s/p procedure. Patient has been optimized for discharge and will see his urologist the day of leavening the hospital for drain removal, further home wound care instructions, and any prescriptions if needed. Also of note, patient had a recent doctor's visit that showed increased LFTs and an US that showed fatty liver - hepatitis panel and A1C labs are pending, patient will need to follow these up with his PCP. Date of Admission:12/18/19 Date of Discharge: 12/20/19 Minutes to complete discharge: 37 Discharge Summary Problems reviewed: Yes Reason For Visit: PAIN IN TESTICLE,TORSION OF RIGHT TESTICLE Current Active Problems Encounter for screening laboratory testing for COVID-19 virus (Acute) Leukocytosis (Acute) Right testicular torsion (Acute) Testicle pain (Acute) Transaminitis (Acute) UTI (urinary tract infection) (Acute) Condition: Improved - Instructions Diet, Activity, Other Instructions: You came to the hospital for lower abdominal pain and right testicular pain, and were found to have a right testicular torsion. Dr. Rogers, your urologist took you to the OR for an orchiectomy. You recovered well from the surgery and are ready to go home. As soon as you leave the hospital, please go to the urology office across the street to see Dr. Rogers. The address is [address] [place] [address]. He will give you detailed wound care instructions as well as prescribe any medications if needed. the drain will be removed Follow up: please make sure to follow up with your primary care physician - we referred you to Dr. Mims. Hepatitis pannel and A1C lab studies are still pending, please make sure to follow up with you primary care doctor. you might need to be started on diabetes med s Diet: We highly recommend a well balanced diet that includes much fruit and vegetables, freshly cooked food, and adequate water intake. Please avoid fried foods, as well as sweets, and sugary beverages. Exercise/Activity: Once you are fully healed, we recommend exercise for a minimum of 3x per week for at least 30 minutes. Other instructions: If you are experiencing increasing pain in your scrotal area or abdomen, chills, fevers, increasing drainage form the surgical site, or any other concerning symptoms, please go to your nearest emergency room or call 911. Referrals: Parag Mims MD [Staff Physician] - 1 Week Disposition: HOME - Home Medications Comprehensive Discharge Medication List: Ambulatory Orders Ibuprofen [Motrin Ib] 400 mg PO Q6H PRN #15 capsule 12/20/19 This patient is new to me today: No Emergency Visit: Yes ED Registration Date: 12/18/19 Care time: The patient presented to the Emergency Department on the above date and was hospitalized for further evaluation of their emergent condition. Critical Care patient: No - Discharge Referral Referred to [facility] No ATTENDING PHYSICIAN STATEMENT I saw and evaluated the patient. I reviewed the resident's note and discussed the case with the resident. I agree with the resident's findings and plan as documented. SUBJECTIVE: OBJECTIVE: ASSESSMENT AND PLAN:
[2019-12-20 11:45] VITALS: BP 136/77; PULSE 77; TEMP 98
--- NOTE | 2019-12-20 16:57 | PN ---
Teaching Attending Note Name of Resident: Nataly Aiken ATTENDING PHYSICIAN STATEMENT I saw and evaluated the patient. I reviewed the resident's note and discussed the case with the resident. I agree with the resident's findings and plan as documented. SUBJECTIVE: seen around 10 am No fever or chills. No abd pain , no N/V . no hematuria . no pain in scrotal area. OBJECTIVE: NAD, awake, alert, cooperative CV: RRR Lungs: CTAB Ext: No edema or erythema on upper or lower extremities Abd: soft, NT, ND, NL BS. : a small wound with a drain in R sided scrotom. R testicle is not felt. L testicle is normal . No erythema on skin or in groin. ASSESSMENT AND PLAN: 34 y/o man with h/o Colitis, Transaminitis due to fatty liver , Prediabetes who presented with R testicular pain and was found to have R testicular torsion 1- R testicular torsion s/p orchiectomy/hydrocecectomy POD 1. - doing well . urine cx neg . No need fro Abx. - dc home - team with uro: patient to go directly to uro office for removal of drain and stitches and f to be given wound care instructions. patient understands and willing to go 2- Transaminitis , likely due to fatty liver pcp to follow up on hepatitis serology. patient understands and he was referred to PCP 3- H/o Pre- DM. A1 c was ordered today. by the time patient left A1c was not resulted . he was supposed to follow with pcp for results. team will call patient and advise he has Dm and prescribe Metformin . stressed he needs pcp , life style changes and exercise home
--- NOTE | 2019-12-21 17:09 | PATH ---
Surgical Pathology Report Patient Name: JENNYFER PUGA [facility]. Rec. #: [id number] /Age/Gender: 1985 (Age: 34) / M Account: [id number] Location: [address] [place] [address]/[facility] Taken: 12/19/2019 Received: 12/19/2019 Reported: 12/21/2019 Physicians: Memo Colón M.D. Specimen(s) Received A: HYDROCELE SAC B: RIGHT TESTICLE WITH TUNICA VAGINALIS Clinical History Pain in testicle, torsion of right testicle Final Diagnosis A. HYDROCELE SAC, EXCISION: SMALL FRAGMENT OF BENIGN FIBROVASCULAR TISSUE. B. TESTICLE, TUNICA VAGINALIS, EPIDIDYMIS, RIGHT, ORCHIECTOMY: TESTICULAR PARENCHYMA WITH VASCULAR CONGESTION, HEMORRHAGE, AND NECROSIS, CONSISTENT WITH TESTICULAR TORSION. PORTION OF TUNICA VAGINALIS WITH VASCULAR CONGESTION. Electronically Signed Fariha Laura M.D. Gross Description A. Received in formalin labeled "hydrocele sac," is a 0.7 x 0.4 x 0.3 cm lee-terry portion of soft tissue. The specimen is submitted in toto in one cassette. B. Received in formalin labeled "right testicle with tunica vaginalis, right epididymis," is a 43 g orchiectomy specimen with a 1.5 cm in length portion of spermatic cord attached. The entire outer surface of the specimen is terry purple and hemorrhagic. The tunica is smooth with a focal defect as well as a focal 2.0 x 0.5 x 0.3 cm lee monroy portion of attached fibrous tissue. The testicle measures 4.7 x 3.1 x 2.8 cm and the attached epididymis measures 3.0 x 1.4 x 1.2 cm. The entire testicular parenchyma and epididymal parenchyma is red-brown and hemorrhagic. No masses are identified. Manager Statistics sections are submitted in 7 cassettes as follows: 1-spermatic cord margin of resection; 2-fibrous tissue attached to tunica vaginalis; 3-section from defect in tunica vaginalis; [id number] parenchyma; 6-epididymal parenchyma; 7-additional section of spermatic cord. /12/20/[address] [facility]12/20/2019
== END 2019-12-20 13:56 | disposition home or self-care (01) | DRG 711 ==
LOC: JER 20:26 → JERBED 22:06 → J6WEST-2 12-19 00:38 → J5S 12-19 15:40
PROVIDERS: ADMIT Internal Medicine; ATTEND Internal Medicine
PROC: 0VB90ZZ Excision of Right Testis, Open Approach (ICD-10-PCS; 2019-12-19)
PROC: 0VQ90ZZ Repair Right Testis, Open Approach (ICD-10-PCS; 2019-12-19)
PROC: 0VJD0ZZ Inspection of Testis, Open Approach (ICD-10-PCS; 2019-12-19)
PROC: 0VBF0ZZ Excision of Right Spermatic Cord, Open Approach (ICD-10-PCS; principal; 2019-12-19 07:45)
DX: N44.00 Torsion of testis, unspecified (principal); N39.0 Urinary tract infection, site not specified; R73.03 Prediabetes; D72.829 Elevated white blood cell count, unspecified; R74.0 Nonspecific elevation of levels of transaminase and lactic acid dehydrogenase [LDH]; Z11.59 Encounter for screening for other viral diseases; N50.89 Other specified disorders of the male genital organs; K76.0 Fatty (change of) liver, not elsewhere classified; E66.3 Overweight; Z68.34 Body mass index [BMI] 34.0-34.9, adult
CPT/HCPCS: 36415; 71046-TC-FY; 76870-TC; 80053; 80074; 81003; 83036; 83605; 83735; 84100; 85025; 85610; 85730; 86850; 86900; 86901; 87040; 87086; 87491; 87591; 88302-TC; 88305-TC; 93005; 93010; 94760; 99285-25; J0131; J1644; U0003